=== PATIENT | male | born 1965 | race Caucasian/White ===

== ENCOUNTER 2016-08-21 16:31 | Inpatient (IN) | payer MEDICAID ==
[~2016-08-21] VITALS: Ht 182.9 cm; Wt 103.0 kg
[2016-08-21] MEDS ORDERED: ENOXAPARIN SOD 100 MG/1 ML SYRINGE SC ONE (17:15)
[2016-08-21 17:41] LABS: Basophils # (auto) 0 uL; Basophils % (auto) 0.4 % (0.0-2.0); CONDITION AutoValidated; Eosinophils # (auto) 0.6 uL; Eosinophils % (auto) 6.2 % (0.0-7.0); Hematocrit 45.8 % (41.0-53.0); Hemoglobin 15.8 g/dL (13.5-17.5); Lymphocytes % (auto) 10.6 % (10.0-50.0); Mean Corpuscular Hemoglobin 30.7 pg (28.0-32.0); Mean Corpuscular Hgb Conc. 34.4 g/dL (32.0-36.0); Mean Corpuscular Volume 89.2 fL (80.0-100.0); Mean Platelet Volume 8.1 fL (7.4-10.4); Monocytes # (auto) 0.6 uL; Monocytes % (auto) 5.8 % (0.0-12.0); Neutrophils # (auto) 7.4 uL; Platelet Count (auto) 217 10^3/uL (140-450); Red Cell Distribution Width 13.7 % (11.6-16.0); White Blood Cell 9.7 10^3/uL (4.4-10.8)
[2016-08-21] MEDS ORDERED: HYDROcodone-ACET 5/325MG TAB PO PRN (18:00)
[2016-08-21] MEDS ORDERED: ACETAMINOPHEN 500 MG TAB PO PRN (18:00)
[2016-08-21] MEDS ORDERED: LORazepam 0.5 MG TAB PO PRN (18:00)
[2016-08-21] MEDS ORDERED: NITROGLYCERIN 0.4 MG SL TAB SL PRN (18:00)
[2016-08-21] MEDS ORDERED: PROMETHAZINE HCL 25 MG/ML 1ML IV PRN (18:00)
[2016-08-21] MEDS ORDERED: MORPHINE SULF INJ 2 MG/ML SYRINGE 1ML IV PRN ×2 (18:00)
[2016-08-21] MEDS ORDERED: LACTULOSE 20Gm/30ML SOLN PO PRN (18:00)
[2016-08-21] MEDS ORDERED: TEMAZEPAM 15 MG CAP PO PRN (18:00)
[2016-08-21] MEDS: ENOXAPARIN SOD 100 MG/1 ML SYRINGE SC SCH (18:01)
[2016-08-21 18:04] LABS: Albumin 3.5 g/dL (3.4-5.0); BUN/Creatinine Ratio 13.5; Bilirubin, Total 0.8 mg/dL (0.2-1.0); Calcium 8.6 mg/dL (8.5-10.1); Potassium 3.7 mmol/L (3.5-5.1)
[2016-08-21 18:10] LABS: INR 0.92 (0.9-1.15); Partial Thromboplastin Time 28.6 sec (22.64-33.71)
[2016-08-21] MEDS ORDERED: WARFARIN SODIUM 10 MG TAB PO ONE (19:00)
[2016-08-21 20:15] VITALS: BP 113/81
[2016-08-21 21:43] VITALS: BP 113/81
[2016-08-22 05:06] VITALS: BP 107/65
[2016-08-22] MEDS: ENOXAPARIN SOD 100 MG/1 ML SYRINGE SC SCH ×2 (06:28→17:29)
[2016-08-22 07:09] LABS: Basophils # (auto) 0 uL; Basophils % (auto) 0.5 % (0.0-2.0); CONDITION AutoValidated; Eosinophils # (auto) 0.6 uL; Eosinophils % (auto) 8.5 % (0.0-7.0); Hematocrit 44.3 % (41.0-53.0); Hemoglobin 15.1 g/dL (13.5-17.5); Lymphocytes # (auto) 1.4 uL; Lymphocytes % (auto) 18.8 % (10.0-50.0); Mean Corpuscular Hemoglobin 30.5 pg (28.0-32.0); Mean Corpuscular Hgb Conc. 34.2 g/dL (32.0-36.0); Mean Corpuscular Volume 89.3 fL (80.0-100.0); Mean Platelet Volume 7.7 fL (7.4-10.4); Monocytes # (auto) 0.5 uL; Monocytes % (auto) 6.1 % (0.0-12.0); Neutrophils # (auto) 4.9 uL; Neutrophils % (auto) 66.1 % (37.0-80.0); Platelet Count (auto) 206 10^3/uL (140-450); Red Cell Distribution Width 13.6 % (11.6-16.0); White Blood Cell 7.4 10^3/uL (4.4-10.8)
[2016-08-22 07:19] LABS: INR 0.93 (0.9-1.15); Partial Thromboplastin Time 31.3 sec (22.64-33.71); Prothrombin Time 10.1 sec (9.37-12.3)
[2016-08-22 07:47] LABS: Urine Bilirubin Negative (Negative); Urine Blood Negative /uL (Negative); Urine Color Yellow (Yellow); Urine Glucose Normal (Normal); Urine Ketone Negative (Negative); Urine Mucus FEW (None Seen); Urine RBC 6 /hpf (0 - 3); Urine Triple Phosphate Crystal FEW /hpf (None Seen); Urine Urobilinogen Normal (Negative); Urine pH 7.5 (5.0-8.0)
[2016-08-22 07:49] LABS: Urine Nitrite POSITIVE (Negative)
[2016-08-22 09:36] VITALS: BP 119/83
[2016-08-22] MEDS: PANTOPRAZOLE 40 MG TAB PO SCH (09:54)
[2016-08-22 13:13] VITALS: BP 117/73
[2016-08-22] MEDS ORDERED: WARFARIN SODIUM 10 MG TAB PO ONE (17:00)
[2016-08-22 17:06] VITALS: BP 110/72
[2016-08-22 21:48] VITALS: BP 126/78
[2016-08-23 05:00] VITALS: BP 126/76
[2016-08-23] MEDS: ENOXAPARIN SOD 100 MG/1 ML SYRINGE SC SCH ×2 (05:59→17:22)
[2016-08-23 06:47] LABS: Basophils # (auto) 0 uL; Basophils % (auto) 0.7 % (0.0-2.0); CONDITION AutoValidated; Eosinophils # (auto) 0.6 uL; Eosinophils % (auto) 8.7 % (0.0-7.0); Hematocrit 45.6 % (41.0-53.0); Hemoglobin 15.5 g/dL (13.5-17.5); Lymphocytes # (auto) 1.4 uL; Lymphocytes % (auto) 21.1 % (10.0-50.0); Mean Corpuscular Hemoglobin 30.3 pg (28.0-32.0); Mean Corpuscular Volume 89.1 fL (80.0-100.0); Mean Platelet Volume 7.7 fL (7.4-10.4); Monocytes # (auto) 0.4 uL; Monocytes % (auto) 6.3 % (0.0-12.0); Neutrophils # (auto) 4.1 uL; Neutrophils % (auto) 63.2 % (37.0-80.0); Platelet Count (auto) 222 10^3/uL (140-450); Red Cell Distribution Width 13.7 % (11.6-16.0); White Blood Cell 6.5 10^3/uL (4.4-10.8)
[2016-08-23 06:58] LABS: Partial Thromboplastin Time 36.8 sec (22.64-33.71)
[2016-08-23 07:06] LABS: BUN/Creatinine Ratio 17.4; Calcium 8.2 mg/dL (8.5-10.1); Magnesium 2.2 mg/dL (1.6-2.6); Potassium 3.7 mmol/L (3.5-5.1)
[2016-08-23 07:23] LABS: INR 1.76 (0.9-1.15); Prothrombin Time 19.3 sec (9.37-12.3)
[2016-08-23 09:10] VITALS: BP 119/68
[2016-08-23] MEDS: PANTOPRAZOLE 40 MG TAB PO SCH (09:54)
[2016-08-23 13:44] VITALS: BP 115/80
[2016-08-23] MEDS ORDERED: WARFARIN SODIUM 5 MG TAB PO ONE (17:00)
[2016-08-23 17:02] VITALS: BP 127/76
== END 2016-08-23 18:37 | disposition home or self-care (01) | DRG 197 ==
LOC: ER 16:35 → TELE 16:36 → TELE-EAST 20:15
PROVIDERS: ADMIT Internal Medicine; ATTEND Internal Medicine
DX: I82.411 Acute embolism and thrombosis of right femoral vein (principal); I82.431 Acute embolism and thrombosis of right popliteal vein; E66.01 Morbid (severe) obesity due to excess calories; F17.210 Nicotine dependence, cigarettes, uncomplicated; Z68.30 Body mass index [BMI] 30.0-30.9, adult; I25.10 Atherosclerotic heart disease of native coronary artery without angina pectoris; I25.2 Old myocardial infarction; K21.9 Gastro-esophageal reflux disease without esophagitis; Z80.0 Family history of malignant neoplasm of digestive organs; Z80.3 Family history of malignant neoplasm of breast; Z80.42 Family history of malignant neoplasm of prostate; Z85.46 Personal history of malignant neoplasm of prostate; Z85.51 Personal history of malignant neoplasm of bladder; Z85.528 Personal history of other malignant neoplasm of kidney; M19.90 Unspecified osteoarthritis, unspecified site; Z88.0 Allergy status to penicillin; Z90.5 Acquired absence of kidney; Z71.89 Other specified counseling
CPT/HCPCS: 36415; 80048; 80053; 81001; 81241; 83735; 85025; 85610; 85730; 93971; 94761; 96372

== ENCOUNTER 2016-08-29 09:23 | Emergency (ER) | payer MEDICAID ==
[~2016-08-29] VITALS: Ht 182.9 cm; Wt 95.3 kg
[2016-08-29] MEDS ORDERED: SODIUM CHLORIDE 0.9% 1,000 ML IV ONE (10:29)
[2016-08-29 10:30] LABS: Albumin 3.4 g/dL (3.4-5.0); Bilirubin, Total 0.4 mg/dL (0.2-1.0); Calcium 8.6 mg/dL (8.5-10.1); Potassium 3.4 mmol/L (3.5-5.1); Total Protein 6.6 g/dL (6.4-8.2)
[2016-08-29] MEDS ORDERED: KETOROLAC TROMETH 30 MG/ML 1ML VIAL IV ONE (10:30)
[2016-08-29 10:53] LABS: Basophils # (auto) 0 uL; Basophils % (auto) 0.4 % (0.0-2.0); CONDITION Y; Eosinophils # (auto) 0.4 uL; Eosinophils % (auto) 5.5 % (0.0-7.0); Hematocrit 44.1 % (41.0-53.0); Hemoglobin 15.1 g/dL (13.5-17.5); Lymphocytes % (auto) 14.2 % (10.0-50.0); Mean Corpuscular Hemoglobin 30.5 pg (28.0-32.0); Mean Corpuscular Hgb Conc. 34.1 g/dL (32.0-36.0); Mean Corpuscular Volume 89.2 fL (80.0-100.0); Mean Platelet Volume 7.9 fL (7.4-10.4); Monocytes # (auto) 0.7 uL; Monocytes % (auto) 9.4 % (0.0-12.0); Neutrophils # (auto) 5.2 uL; Neutrophils % (auto) 70.5 % (37.0-80.0); Platelet Count (auto) 242 10^3/uL (140-450); White Blood Cell 7.4 10^3/uL (4.4-10.8)
[2016-08-29 11:15] LABS: INR 2.2 (0.9-1.15); Partial Thromboplastin Time 45.5 sec (22.64-33.71)
[2016-08-29 11:27] LABS: Prothrombin Time 24.2 sec (9.37-12.3)
[2016-08-29 12:34] VITALS: BP 137/87
== END 2016-08-29 14:04 | disposition home or self-care (01) ==
LOC: ER 09:25
DX: I82.401 Acute embolism and thrombosis of unspecified deep veins of right lower extremity (principal); E87.6 Hypokalemia; N18.9 Chronic kidney disease, unspecified; M19.90 Unspecified osteoarthritis, unspecified site; I25.10 Atherosclerotic heart disease of native coronary artery without angina pectoris; K21.9 Gastro-esophageal reflux disease without esophagitis; F17.210 Nicotine dependence, cigarettes, uncomplicated; I25.2 Old myocardial infarction; Z90.49 Acquired absence of other specified parts of digestive tract; Z88.0 Allergy status to penicillin; Z85.528 Personal history of other malignant neoplasm of kidney
CPT/HCPCS: 36415; 80053; 83735; 84443; 85025; 85379; 85610; 85730; 93005; 93971; 96361; 96374; 99285; J1885; J7030

== ENCOUNTER 2017-08-20 16:20 | Emergency (ER) | payer MEDICAID ==
[~2017-08-20] VITALS: Ht 182.9 cm; Wt 99.8 kg
[2017-08-20 16:36] VITALS: BP 119/80
[2017-08-20] MEDS ORDERED: HYDROcodone-ACET 5/325MG TAB PO ONE (17:30)
== END 2017-08-20 17:56 | disposition home or self-care (01) ==
LOC: ER 16:27
DX: S82.52XA Displaced fracture of medial malleolus of left tibia, initial encounter for closed fracture (principal); S93.402A Sprain of unspecified ligament of left ankle, initial encounter; Z88.0 Allergy status to penicillin; W22.8XXA Striking against or struck by other objects, initial encounter; Y93.89 Activity, other specified; Y92.89 Other specified places as the place of occurrence of the external cause; Y99.8 Other external cause status
CPT/HCPCS: 29515; 73610

== ENCOUNTER 2018-11-25 13:17 | Inpatient (IN) | payer MEDICAID ==
[~2018-11-25] VITALS: Ht 182.9 cm; Wt 113.4 kg
[2018-11-25 13:55] LABS: Basophils # (auto) 0.1 uL; Basophils % (auto) 0.8 % (0.0-2.0); Eosinophils # (auto) 0.5 uL; Eosinophils % (auto) 6.9 % (0.0-7.0); Hematocrit 49.4 % (41.0-53.0); Hemoglobin 16.9 g/dL (13.5-17.5); Lymphocytes # (auto) 1.2 uL; Lymphocytes % (auto) 16.1 % (10.0-50.0); Mean Corpuscular Hemoglobin 30.8 pg (28.0-32.0); Mean Corpuscular Hgb Conc. 34.1 g/dL (32.0-36.0); Mean Corpuscular Volume 90.3 fL (80.0-100.0); Monocytes # (auto) 0.4 uL; Neutrophils # (auto) 5.3 uL; Neutrophils % (auto) 70.2 % (37.0-80.0); Nucleated Red Blood Cells % 0.1 %; Platelet Count (auto) 186 10^3/uL (140-450); Red Blood Cells 5.48 10^6/uL (4.5-5.90); Red Cell Distribution Width 14.4 % (11.8-14.3); White Blood Cell 7.5 10^3/uL (4.4-10.8)
[2018-11-25 14:16] LABS: INR < 0.93 (0.9-1.15); Partial Thromboplastin Time 29.8 sec (23.64-32.05)
[2018-11-25 14:17] LABS: Albumin 3.5 g/dL (3.4-5.0); Anion Gap 4 (5-15); Blood Urea Nitrogen 10 mg/dL (7-18); Calcium 8.3 mg/dL (8.5-10.1); Carbon Dioxide 28 mmol/L (21-32); Chloride 106 mmol/L (98-107); Glucose 106 mg/dL (74-106); Sodium 138 mmol/L (136-145)
[2018-11-25 14:20] LABS: Alanine Aminotransferase 39 U/L (16-61); Aspartate Aminotransferase 18 U/L (15-37); BUN/Creatinine Ratio 8.3; GFR African American 80 mL/min; GFR Non-African American 66 mL/min
[2018-11-25 14:25] LABS: Alkaline Phosphatase 85 U/L (45-117); Bilirubin, Total 0.6 mg/dL (0.2-1.0); Total Protein 7.1 g/dL (6.4-8.2)
[2018-11-25] MEDS ORDERED: FUROSEMIDE 40 MG/4 ML VIAL IV ONE (14:45)
[2018-11-25] MEDS ORDERED: MORPHINE SULFATE 4 MG/ML SYR/VIAL ONE (15:13)
[2018-11-25] MEDS ORDERED: ONDANSETRON HCL 4 MG/2 ML VIAL ONE (15:13)
[2018-11-25] MEDS ORDERED: ONDANSETRON HCL 4 MG/2 ML VIAL IV ONE (15:30)
[2018-11-25] MEDS ORDERED: MORPHINE SULFATE 4 MG/ML SYR/VIAL IV ONE (15:30)
[2018-11-25] MEDS ORDERED: ENOXAPARIN SOD 120 MG/0.8 ML SYRINGE SC ONE ×2 (16:30→17:00)
[2018-11-25] MEDS ORDERED: PROMETHAZINE HCL 25 MG/ML 1ML IV PRN (16:45)
[2018-11-25] MEDS ORDERED: TEMAZEPAM 15 MG CAP PO PRN (16:45)
[2018-11-25] MEDS ORDERED: MORPHINE SULF INJ 2 MG/ML SYRINGE 1ML IV PRN (16:45)
[2018-11-25] MEDS ORDERED: NITROGLYCERIN 0.4 MG SL TAB SL PRN (16:45)
[2018-11-25] MEDS ORDERED: traMADol HCL 50 MG TAB PO PRN (16:45)
[2018-11-25] MEDS ORDERED: LACTULOSE 20Gm/30ML SOLN PO PRN (16:45)
[2018-11-25] MEDS ORDERED: ACETAMINOPHEN 500 MG TAB PO PRN (16:45)
--- NOTE | 2018-11-25 18:26 | NUR ---
Telemetry admit from ER JULIO CÉSAR HUNG admitted to Telemetry unit after SBAR received. Patient oriented to Cassie justice RN, unit, room, bed, and unit policies regarding patient care and visiting hours. Patient now on continuous telemetry monitoring, tele box # [[id number]] and telemetry reading on arrival to unit is [SINUSTACHYCARDIA AT [id number]]. Patient placed on bedside oxygen, weighed by bedscale and encouraged to call if they need something. All questions and concerns addressed, patient verbalized understanding.
[2018-11-25] MEDS ORDERED: ALBUTEROL SULF 2.5 MG/0.5ML(0.5%) NEB SOLN NEB PRN ×2 (18:30→21:00)
--- NOTE | 2018-11-25 19:00 | NUR ---
OUTSIDE FOOD ENTERED ROOM FOR LAST ROUND AND FOUND PATIENT EATING FOOD THAT WAS BROUGHT IN FROM FAMILY. PATIENT IS CURRENTLY EATING A HAMBURGER, FRIES AND NUMEROUS CHOCOLATE BARS. EDUCATED PATIENT ON IMPORTANCE OF COMPLYING WITH MD'S CURRENT DIET ORDER. PATIENT VERBALIZED UNDERSTANDING AND STATES "YEAH I KNOW. BUT I AM FINE. THIS IS WHAT I AM GOING TO EAT". PATIENT CONTINUES TO EAT.
[2018-11-25 19:19] VITALS: BP 121/74
[2018-11-25] MEDS ORDERED: APIX5TAB PO (19:29)
--- NOTE | 2018-11-25 20:08 | NUR ---
Pt is willing to use Nicotine patch tonight and states that he does not plan on going back out to smoke. Pt also with wheezes in all lobes bilat and Hospitalist paged for nicotine patch and Simran mason.
--- NOTE | 2018-11-25 20:43 | NUR ---
Hospitalist, Louie Mercedes [employer] E[employer] CONSULTANT returned page and new orders received at this time.
[2018-11-25 21:00] VITALS: BP 121/74
--- NOTE | 2018-11-25 21:14 | NUR ---
Respiratory note: AT BEDSIDE FOR PRN MED NEB TX.
[2018-11-25 21:40] VITALS: BP 121/74
[2018-11-25 22:00] VITALS: BP 120/81
--- NOTE | 2018-11-25 22:00 | NUR ---
BOAT FINISHER came to report pt c/o chest pain and pt found clutching his chest and c/o chest pain 12/15. see vs record for vs, EKG done= (ST 102 otherwise normal ECG.) Morphine given for chest pain.
[2018-11-25 22:10] VITALS: BP 127/76
--- NOTE | 2018-11-25 22:10 | NUR ---
Pt now rates chest pain 08/15.
--- NOTE | 2018-11-25 22:18 | NUR ---
Pt is resting with eyes closed and resp rate is even and unlabored. No s/s of any distress noted at this time. Pt is also snoring.
[2018-11-25] MEDS: CLINDAMYCIN 600MG IV 50 ML IV SCH (22:33)
[2018-11-25 23:02] LABS: Urine Bacteria NONE SEEN /hpf (None Seen); Urine Blood Negative /uL (Negative); Urine Mucus FEW (None Seen); Urine Specific Gravity 1.015 (1.001-1.035); Urine WBC 30 /hpf (0 - 3)
[2018-11-25 23:14] LABS: Alcohol, Urine < 3.0 mg/dL (0-5); Barbiturate Scree,Urine NEGATIVE (NEGATIVE); Benzodiazephine Screen, Urine NEGATIVE (NEGATIVE); Cannabinoid Screen, Urine NEGATIVE (NEGATIVE); Cocaine Screen, Urine POSITIVE (NEGATIVE)
[2018-11-25 23:18] LABS: Opiate Scree,Urine POSITIVE (NEGATIVE); Phencyclidine Screen, Urine NEGATIVE (NEGATIVE)
[2018-11-26] VITALS (9 sets, daily range): BP systolic 94–127; BP diastolic 47–85
[2018-11-26] MEDS: ALBUTEROL SULF 2.5 MG/0.5ML(0.5%) NEB SOLN NEB SCH ×4 (00:47→18:17)
[2018-11-26] MEDS: IPRATROPIUM BROM 0.5 MG/2.5ML INH SOL NEB SCH ×4 (00:47→18:17)
--- NOTE | 2018-11-26 01:00 | NUR ---
UDS- positive for Opiates, Cocaine, and Amphetamines.
[2018-11-26 01:27] LABS: Amphetamine Screen, Urine POSITIVE (NEGATIVE)
--- NOTE | 2018-11-26 02:50 | NUR ---
Pt reports no relief from the Nitro. B/P is 95/47 at this time.
--- NOTE | 2018-11-26 03:01 | NUR ---
Pt states that he awoke with chest pain 12/15 . Pt skin is warm and dry and pink. see vs record for vs. resp rate is even and unlabored. Nitro SL given at this time. Addendum: 11/26/18 at 0639 by ANA ECHAVARRIA RN Correction: The time of this event was 0245 on 11/26/18.
--- NOTE | 2018-11-26 03:17 | NUR ---
Pt c/o nausea and medicated with Phenergan 12.5mg IVP per orders.
--- NOTE | 2018-11-26 03:40 | NUR ---
Pt resting with eyes closed and resp rate is even and unlabored. Pt is also snoring. No s/s of any distress noted at this time. Bed is low, wheels are locked, and call light is with in reach.
[2018-11-26] MEDS ORDERED: ENOXAPARIN SOD 120 MG/0.8 ML SYRINGE SC SCH (06:00)
[2018-11-26] MEDS: CLINDAMYCIN 600MG IV 50 ML IV SCH ×2 (06:22→14:02)
--- NOTE | 2018-11-26 07:10 | NUR ---
Respiratory note: SCHEDULED MEDNEB TX NOT GIVEN, PT REFUSING AT THIS TIME. PT SLEEPING COMFORTABLY IN BED, NO S/S OF RESPIRATORY DISTRESS. WILL RETURN FOR NEXT SCHEDULED TX. WROTE RT NAME AND PAGER NUMBER ON WHITEBOARD.
[2018-11-26] MEDS ORDERED: NICOTINE 14 MG/24HR TOPICAL PATCH TD SCH (10:00)
[2018-11-26] MEDS ORDERED: PANTOPRAZOLE 40 MG TAB PO SCH (10:00)
[2018-11-26] MEDS ORDERED: ASPirin 81 mg TAB PO SCH (10:00)
[2018-11-26] MEDS ORDERED: LEVOFLOXACIN 500MG 100 ML IV SCH (10:00)
[2018-11-26] MEDS ORDERED: SODIUM CHLORIDE 0.9% 1,000 ML IV ONE (10:45)
--- NOTE | 2018-11-26 11:00 | NUR ---
MD to MD MD Yocasta Alvarado speaking to cardio MD Teran. Per cardiology, patient is cleared for DC from his standpoint.
--- NOTE | 2018-11-26 11:02 | NUR ---
at bedside Dr. Yocasta Alvarado at bedside discussing POC with patient. All questions and concerns addressed.
[2018-11-26] MEDS ORDERED: IOHEXOL 350 MG/ML 100ML IJ ONE (12:14)
--- NOTE | 2018-11-26 12:38 | NUR ---
PT OFF UNIT OFF UNIT FOR CT ANGIO
--- NOTE | 2018-11-26 12:56 | NUR ---
BACK ON UNIT PATIENT BACK ON UNIT FROM PROCEDURE
[2018-11-26] MEDS ORDERED: APIX5TAB PO (13:00)
--- NOTE | 2018-11-26 14:09 | NUR ---
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
--- NOTE | 2018-11-26 14:11 | NUR ---
DISCHARGE MEDICATION CALLED PT'S PREFERRED PHARMACY [facility] TO CONFIRM THAT D/C MED WAS ELECTRONICALLY SENT. PER [facility] INSULATION CUTTER AND [facility], PHARMACY HAS RECEIVED D/C PRESCRIPTION AND IS AVAILABLE FOR WELD TECHNICIAN ONCE PATIENT HAS BEEN DISCHARGED FROM HOSPITAL.
--- NOTE | 2018-11-26 14:25 | NUR ---
SOCIAL SERVICE RETURN CALL SPOKE TO S.S. PERSONAL STEPHAN. PER STEPHAN, PRIMARY RN TO CONFIRM IF PATIENT ALREADY HAS HOME HEALTH SET UP. PER STEPHAN, SOCIAL SERIVCES CONSULT WILL BE ADDRESSED ON WEDNESDAY AND HOME HEALTH WILL BE SET UP. COPY OF USER INTERFACE ARTIST REQUEST WITH CURRENT INFO PLACED ON S.S. OFFICE. 1430- PER PATIENT HE DOES NOT CURRENTLY HAVE HOME HEALTH SERVICES AT HOME. PATIENT ALSO DOES NOT HAVE A SPECIFIC PRIMARY MD BUT DOES FOLLOW UP WITH [facility].
--- NOTE | 2018-11-26 15:19 | NUR ---
Yocasta Alvarado return call Updated MD on CT angio results. Per MD ok to precede with discharge for today.
--- NOTE | 2018-11-26 17:25 | NUR ---
TELE BOX #60 REMOVED AND SENT TO ICU
[2018-11-26] MEDS ORDERED: ELIQUIS PO SCH (18:00)
[2018-11-26] MEDS ORDERED: APIXABAN 5 MG TAB PO SCH (18:00)
== END 2018-11-26 18:30 | disposition home health service (06) | DRG 197 ==
LOC: ER 13:17 → TELE 13:18 → TELE-WESTW 18:29
PROVIDERS: ADMIT Internal Medicine; ATTEND Internal Medicine
DX: I82.4Z3 Acute embolism and thrombosis of unspecified deep veins of distal lower extremity, bilateral (principal); I50.43 Acute on chronic combined systolic (congestive) and diastolic (congestive) heart failure; Z93.6 Other artificial openings of urinary tract status; R07.89 Other chest pain; F15.10 Other stimulant abuse, uncomplicated; F17.210 Nicotine dependence, cigarettes, uncomplicated; I25.10 Atherosclerotic heart disease of native coronary artery without angina pectoris; J45.909 Unspecified asthma, uncomplicated; M19.90 Unspecified osteoarthritis, unspecified site; K21.9 Gastro-esophageal reflux disease without esophagitis; Z80.3 Family history of malignant neoplasm of breast; Z80.42 Family history of malignant neoplasm of prostate; I25.2 Old myocardial infarction; Z82.49 Family history of ischemic heart disease and other diseases of the circulatory system; Z83.3 Family history of diabetes mellitus; Z85.46 Personal history of malignant neoplasm of prostate; Z85.528 Personal history of other malignant neoplasm of kidney; Z86.718 Personal history of other venous thrombosis and embolism; Z90.5 Acquired absence of kidney; Z91.19 Patient's noncompliance with other medical treatment and regimen; Z85.51 Personal history of malignant neoplasm of bladder; Z88.0 Allergy status to penicillin
CPT/HCPCS: 36415; 71046; 71275; 80053; 80307; 81001; 82550; 84443; 84484; 85025; 85610; 85730; 93005; 93306; 93970; 94640; G0378; J1956; J2405; J3490

== ENCOUNTER 2021-12-12 04:37 | Inpatient (IN) | payer MEDICAID ==
[~2021-12-12] VITALS: Ht 188 cm; Wt 113.5 kg
[~2021-12-12 04:37] MED LIST: APIX5TAB PO
[2021-12-12 06:18] LABS: Basophils # (auto) 0.1 10 ^3/uL (0-0.2); Basophils % (auto) 0.8 % (0.0-2.0); Eosinophils # (auto) 0.3 10 ^3/uL (0-0.8); Eosinophils % (auto) 2.5 % (0.0-7.0); Hematocrit 48.3 % (41.0-53.0); Hemoglobin 16.6 g/dL (13.5-17.5); Lymphocytes # (auto) 0.9 10 ^3/uL (0.4-5.4); Mean Corpuscular Hemoglobin 30.4 pg (28.0-32.0); Mean Corpuscular Hgb Conc. 34.3 g/dL (32.0-36.0); Mean Corpuscular Volume 88.7 fL (80.0-100.0); Monocytes # (auto) 0.7 10 ^3/uL (0-1.3); Monocytes % (auto) 6.8 % (0.0-12.0); Neutrophils # (auto) 8.3 10 ^3/uL (1.6-8.6); Neutrophils % (auto) 80.9 % (37.0-80.0); Nucleated Red Blood Cells % 0.1 %; Red Blood Cells 5.45 10^6/uL (4.5-5.90); Red Cell Distribution Width 14.3 % (11.8-14.3); White Blood Cell 10.2 10^3/uL (4.4-10.8)
[2021-12-12 06:32] LABS: Albumin 3.6 g/dL (3.4-5.0); Calcium 8.8 mg/dL (8.5-10.1); Potassium 4.4 mmol/L (3.5-5.1)
[2021-12-12 06:37] LABS: BUN/Creatinine Ratio 8.2; Bilirubin, Total 0.6 mg/dL (0.2-1.0); Total Protein 7.5 g/dL (6.4-8.2)
[2021-12-12] MEDS ORDERED: IOHEXOL 300 MG/ML 100ML BOTTLE IJ ONE (09:23)
[2021-12-12] MEDS ORDERED: ALBUTEROL SULF 2.5 MG/0.5ML(0.5%) NEB SOLN NEB ONE (09:30)
[2021-12-12] MEDS ORDERED: CLINDAMYCIN 600MG IV 50 ML IV ONE (09:30)
[2021-12-12] MEDS ORDERED: IPRATROPIUM BROM 0.5 MG/2.5ML INH SOL NEB ONE (09:30)
[2021-12-12] MEDS ORDERED: DexAMETHasone SOD PHOS 10MG/1ML VIAL INJ IV ONE (09:30)
[2021-12-12] MEDS: MAGNESIUM SULFATE 1GM/100ML 100 ML IV SCH ×2 (09:42→13:15)
[2021-12-12] MEDS ORDERED: ENOXAPARIN SOD 100 MG/1 ML SYRINGE SC ONE (16:30)
[2021-12-12] MEDS ORDERED: MORPHINE SULFATE INJ 2 MG/ml SYRG IV PRN (19:00)
[2021-12-12] MEDS ORDERED: IPRATROPIUM BROM 0.5 MG/2.5ML INH SOL NEB PRN (19:00)
[2021-12-12] MEDS ORDERED: DOCUSATE SOD 100 MG CAP PO PRN (19:00)
[2021-12-12] MEDS ORDERED: ACETAMINOPHEN 325 MG TAB PO PRN (19:00)
[2021-12-12] MEDS ORDERED: ONDANSETRON HCL 4 MG/2 ML VIAL IV PRN (19:00)
[2021-12-12] MEDS ORDERED: ALBUTEROL SULF 2.5 MG/0.5ML(0.5%) NEB SOLN NEB PRN (19:00)
[2021-12-12] MEDS: SODIUM CHLORIDE 0.9% 1,000 ML IV SCH (20:26)
[2021-12-12 21:18] VITALS: BP 120/72
[2021-12-12] MEDS: DexAMETHasone SOD PHOS 10MG/1ML VIAL INJ IV SCH (22:00)
[2021-12-12] MEDS: CLINDAMYCIN 600MG IV 50 ML IV SCH (22:00)
[2021-12-12 22:59] VITALS: BP 119/67
[2021-12-13 05:00] VITALS: BP 104/48
[2021-12-13] MEDS: DexAMETHasone SOD PHOS 10MG/1ML VIAL INJ IV SCH (06:00)
[2021-12-13] MEDS: ENOXAPARIN SOD 120 MG/0.8 ML SYRINGE SC SCH ×2 (06:00→18:00)
[2021-12-13] MEDS: CLINDAMYCIN 600MG IV 50 ML IV SCH ×2 (06:00→14:40)
[2021-12-13 06:45] LABS: Basophils # (auto) 0.1 10 ^3/uL (0-0.2); Basophils % (auto) 0.5 % (0.0-2.0); Eosinophils # (auto) 0 10 ^3/uL (0-0.8); Hematocrit 47.1 % (41.0-53.0); Hemoglobin 16.1 g/dL (13.5-17.5); Lymphocytes # (auto) 0.6 10 ^3/uL (0.4-5.4); Lymphocytes % (auto) 5.2 % (10.0-50.0); Mean Corpuscular Hemoglobin 30.3 pg (28.0-32.0); Mean Corpuscular Hgb Conc. 34.1 g/dL (32.0-36.0); Mean Corpuscular Volume 88.8 fL (80.0-100.0); Monocytes # (auto) 0.1 10 ^3/uL (0-1.3); Monocytes % (auto) 1.2 % (0.0-12.0); Neutrophils # (auto) 11.5 10 ^3/uL (1.6-8.6); Neutrophils % (auto) 93.1 % (37.0-80.0); Nucleated Red Blood Cells % 0.1 %; Red Blood Cells 5.31 10^6/uL (4.5-5.90); White Blood Cell 12.4 10^3/uL (4.4-10.8)
[2021-12-13 07:03] LABS: Albumin 3.4 g/dL (3.4-5.0); Calcium 8.7 mg/dL (8.5-10.1); Potassium 4.9 mmol/L (3.5-5.1)
[2021-12-13 07:09] LABS: BUN/Creatinine Ratio 17.7; Bilirubin, Total 0.5 mg/dL (0.2-1.0)
[2021-12-13 09:43] VITALS: BP 103/62
[2021-12-13] MEDS ORDERED: VANCOMYCIN PER PHARMACY 0 MG IV SCH (11:30)
[2021-12-13] MEDS ORDERED: VANCOMYCIN 1GM/250ML 250 ML IV ONE (11:45)
[2021-12-13] MEDS: PANTOPRAZOLE 40 MG TAB PO SCH (11:48)
[2021-12-13] MEDS ORDERED: VANCOMYCIN 1GM/250ML 250 ML IV SCH (12:00)
[2021-12-13] MEDS: SODIUM CHLORIDE 0.9% 1,000 ML IV SCH (12:02)
[2021-12-13 12:37] VITALS: BP 120/73
[2021-12-13 17:26] VITALS: BP 126/78
[2021-12-13] MEDS ORDERED: cefTRIAXone 1GM/50ML D5W 50 ML IV SCH (18:00)
[2021-12-13 23:42] VITALS: BP 140/75
[2021-12-14] MEDS: SODIUM CHLORIDE 0.9% 1,000 ML IV SCH (04:20)
[2021-12-14] MEDS: ENOXAPARIN SOD 120 MG/0.8 ML SYRINGE SC SCH (05:54)
[2021-12-14 06:16] LABS: Basophils # (auto) 0 10 ^3/uL (0-0.2); Basophils % (auto) 0.3 % (0.0-2.0); Eosinophils # (auto) 0 10 ^3/uL (0-0.8); Hematocrit 46.1 % (41.0-53.0); Hemoglobin 15.8 g/dL (13.5-17.5); Lymphocytes % (auto) 7.4 % (10.0-50.0); Mean Corpuscular Hemoglobin 30.8 pg (28.0-32.0); Mean Corpuscular Hgb Conc. 34.2 g/dL (32.0-36.0); Monocytes # (auto) 0.7 10 ^3/uL (0-1.3); Monocytes % (auto) 5.2 % (0.0-12.0); Neutrophils % (auto) 87.1 % (37.0-80.0); Nucleated Red Blood Cells % 0.1 %; Red Blood Cells 5.12 10^6/uL (4.5-5.90); White Blood Cell 13.8 10^3/uL (4.4-10.8)
[2021-12-14 06:26] VITALS: BP 107/71
[2021-12-14 06:29] LABS: INR 0.96 (0.9-1.15); Partial Thromboplastin Time 32.4 sec (24.6-33.4)
[2021-12-14 06:34] LABS: Calcium 8.9 mg/dL (8.5-10.1); Potassium 4.5 mmol/L (3.5-5.1)
[2021-12-14 09:07] VITALS: BP 137/84
[2021-12-14] MEDS: PANTOPRAZOLE 40 MG TAB PO SCH (09:32)
[2021-12-14 13:00] VITALS: BP 137/91
[2021-12-14] MEDS ORDERED: AMOX500T86 PO (14:59)
[2021-12-14 16:57] VITALS: BP 118/77
[2021-12-14 17:33] LABS: Urine Bacteria FEW /hpf (None Seen); Urine Blood Negative /uL (Negative); Urine Specific Gravity 1.015 (1.001-1.035); Urine WBC 11 /hpf (0 - 3)
[2021-12-14 17:38] LABS: Alcohol, Urine < 3.0 mg/dL (0-10); Amphetamine Screen, Urine POSITIVE (NEGATIVE); Barbiturate Scree,Urine NEGATIVE (NEGATIVE); Benzodiazephine Screen, Urine NEGATIVE (NEGATIVE); Cannabinoid Screen, Urine NEGATIVE (NEGATIVE); Cocaine Screen, Urine NEGATIVE (NEGATIVE); Opiate Scree,Urine NEGATIVE (NEGATIVE); Phencyclidine Screen, Urine NEGATIVE (NEGATIVE)
== END 2021-12-14 16:58 | disposition home or self-care (01) | DRG 383 ==
LOC: ER 04:37 → OVERFLOW 18:56 → WEST WING 21:55
PROVIDERS: ADMIT Nurse Practitioner Family; ATTEND Nurse Practitioner Family
DX: L03.211 Cellulitis of face (principal); I82.502 Chronic embolism and thrombosis of unspecified deep veins of left lower extremity; F17.210 Nicotine dependence, cigarettes, uncomplicated; I25.10 Atherosclerotic heart disease of native coronary artery without angina pectoris; R73.03 Prediabetes; J45.909 Unspecified asthma, uncomplicated; K21.9 Gastro-esophageal reflux disease without esophagitis; K04.7 Periapical abscess without sinus; M19.90 Unspecified osteoarthritis, unspecified site; Z20.822 Contact with and (suspected) exposure to COVID-19; Z83.3 Family history of diabetes mellitus; Z85.46 Personal history of malignant neoplasm of prostate; Z85.51 Personal history of malignant neoplasm of bladder; Z85.528 Personal history of other malignant neoplasm of kidney; Z90.5 Acquired absence of kidney; Z91.14 Patient's other noncompliance with medication regimen; Z93.2 Ileostomy status; Z88.0 Allergy status to penicillin
CPT/HCPCS: 36415; 70450; 70487; 70547; 71045; 80048; 80053; 80307; 81001; 83036; 83880; 85025; 85610; 85730; 87040; 87081; 93005; 93970; 94640; 96365; 96372; 96375; G0378; J1100; J2405; J3490

== ENCOUNTER 2022-07-05 15:12 | Emergency (ER) | payer MEDICAID ==
[~2022-07-05] VITALS: Ht 182.9 cm; Wt 121.3 kg
[~2022-07-05 15:12] MED LIST changes: +AMOX500T86 PO
[2022-07-05 15:21] VITALS: BP 147/95
[2022-07-05] MEDS ORDERED: FURO40TA4 PO (20:47)
[2022-07-05] MEDS ORDERED: RIV15T PO (20:47)
== END 2022-07-05 16:43 | disposition left against medical advice (07) ==
LOC: ER 15:12
DX: I82.402 Acute embolism and thrombosis of unspecified deep veins of left lower extremity (principal); J45.909 Unspecified asthma, uncomplicated; K21.9 Gastro-esophageal reflux disease without esophagitis; F17.210 Nicotine dependence, cigarettes, uncomplicated; Z88.0 Allergy status to penicillin; Z88.1 Allergy status to other antibiotic agents

== ENCOUNTER 2022-07-05 17:29 | Inpatient (IN) | payer MEDICAID ==
[~2022-07-05] VITALS: Ht 182.9 cm; Wt 121.5 kg
[2022-07-05 20:28] VITALS: BP 124/86
[2022-07-05] MEDS ORDERED: RIV15T PO (20:47)
[2022-07-05] MEDS ORDERED: FURO40TA4 PO (20:47)
[2022-07-05] MEDS ORDERED: HEPARIN DRIP/D5W 100UNITS/ML 250 ML IV SCH (21:15)
[2022-07-05 22:00] VITALS: BP 124/86
[2022-07-05 22:11] LABS: Basophils # (auto) 0.1 10 ^3/uL (0-0.2); Basophils % (auto) 0.8 % (0.0-2.0); Eosinophils # (auto) 0.4 10 ^3/uL (0-0.8); Eosinophils % (auto) 4.2 % (0.0-7.0); Hematocrit 44.9 % (41.0-53.0); Hemoglobin 15.4 g/dL (13.5-17.5); Lymphocytes # (auto) 1.4 10 ^3/uL (0.4-5.4); Lymphocytes % (auto) 15.3 % (10.0-50.0); Mean Corpuscular Hemoglobin 30.3 pg (28.0-32.0); Mean Corpuscular Hgb Conc. 34.2 g/dL (32.0-36.0); Mean Corpuscular Volume 88.6 fL (80.0-100.0); Monocytes # (auto) 0.5 10 ^3/uL (0-1.3); Monocytes % (auto) 5.5 % (0.0-12.0); Neutrophils # (auto) 6.9 10 ^3/uL (1.6-8.6); Neutrophils % (auto) 74.2 % (37.0-80.0); Nucleated Red Blood Cells % 0.1 %; Red Blood Cells 5.07 10^6/uL (4.5-5.90); Red Cell Distribution Width 14.4 % (11.8-14.3); White Blood Cell 9.3 10^3/uL (4.4-10.8)
[2022-07-05 22:33] LABS: INR 0.96 (0.9-1.15); Partial Thromboplastin Time 32.2 sec (24.6-33.4)
[2022-07-05] MEDS ORDERED: HEPARIN SODIUM (PORCINE) 5000 UNITS/ML 1ML VIAL IV NR (23:45)
[2022-07-05 23:49] LABS: Anion Gap 7 (5-15); BUN/Creatinine Ratio 10.2 (10.0-20.0); Blood Urea Nitrogen 12 mg/dL (7-18); Calcium 8.6 mg/dL (8.5-10.1); Carbon Dioxide 22 mmol/L (21-32); Chloride 107 mmol/L (98-107); GFR African American 82 mL/min; GFR Non-African American 67 mL/min; Glucose 233 mg/dL (74-106); Potassium 3.7 mmol/L (3.5-5.1); Sodium 136 mmol/L (136-145)
[2022-07-06] VITALS (9 sets, daily range): BP systolic 111–147; BP diastolic 56–93
[2022-07-06] MEDS: HYDROcodone-ACET 5/325MG TAB PO PRN ×2 (00:02→22:57)
[2022-07-06 01:34] LABS: Urine Bacteria FEW /hpf (None Seen); Urine Blood TRACE /uL (Negative); Urine Hyaline Cast FEW /lpf (0 - 2); Urine Mucus FEW (None Seen); Urine WBC 14 /hpf (0 - 3)
[2022-07-06 01:53] LABS: Amphetamine Screen, Urine POSITIVE (NEGATIVE); Cannabinoid Screen, Urine NEGATIVE (NEGATIVE)
[2022-07-06 02:01] LABS: Barbiturate Scree,Urine NEGATIVE (NEGATIVE); Benzodiazephine Screen, Urine NEGATIVE (NEGATIVE); Cocaine Screen, Urine NEGATIVE (NEGATIVE); Opiate Scree,Urine NEGATIVE (NEGATIVE); Phencyclidine Screen, Urine NEGATIVE (NEGATIVE)
[2022-07-06 06:10] LABS: Basophils # (auto) 0 10 ^3/uL (0-0.2); Basophils % (auto) 0.5 % (0.0-2.0); Eosinophils # (auto) 0.4 10 ^3/uL (0-0.8); Eosinophils % (auto) 5.4 % (0.0-7.0); Hematocrit 43.7 % (41.0-53.0); Hemoglobin 15.2 g/dL (13.5-17.5); Lymphocytes # (auto) 1.7 10 ^3/uL (0.4-5.4); Lymphocytes % (auto) 22.3 % (10.0-50.0); Mean Corpuscular Hemoglobin 30.9 pg (28.0-32.0); Mean Corpuscular Hgb Conc. 34.7 g/dL (32.0-36.0); Mean Corpuscular Volume 89.2 fL (80.0-100.0); Monocytes # (auto) 0.4 10 ^3/uL (0-1.3); Monocytes % (auto) 5.9 % (0.0-12.0); Neutrophils % (auto) 65.9 % (37.0-80.0); Nucleated Red Blood Cells % 0.2 %; Red Cell Distribution Width 14.9 % (11.8-14.3); White Blood Cell 7.6 10^3/uL (4.4-10.8)
[2022-07-06 06:23] LABS: INR 0.97 (0.9-1.15); Partial Thromboplastin Time 46.9 sec (24.6-33.4)
[2022-07-06 06:27] LABS: BUN/Creatinine Ratio 13.2 (10.0-20.0); Calcium 8.6 mg/dL (8.5-10.1); Potassium 3.7 mmol/L (3.5-5.1)
[2022-07-06] MEDS ORDERED: HEPARIN DRIP/D5W 100UNITS/ML 250 ML IV SCH ×3 (06:45→22:45)
[2022-07-06] MEDS ORDERED: IODIXANOL 320MG/ML 100ML BTL IV ONE (12:13)
[2022-07-06] MEDS ORDERED: LIDOCAINE 2%HCL (LOCAL ANESTH.) INJ 20ML MDV ONE (12:13)
[2022-07-06] MEDS ORDERED: fentaNYL CITRATE 100 MCG/2 ML VL ONE (12:14)
[2022-07-06] MEDS ORDERED: ANGIOMAX 250 MG VIAL IV ONE (12:14)
[2022-07-06] MEDS ORDERED: SODIUM CHL 0.9% 0 ML ONE (12:15)
[2022-07-06] MEDS ORDERED: MIDAZOLAM HCL 2MG/2ML 2ml VIAL (1mg/ml) ONE (12:15)
[2022-07-06] MEDS ORDERED: HEPARIN SODIUM (PORCINE) 5000 UNITS/ML 1ML VIAL ONE (12:17)
[2022-07-06] MEDS ORDERED: DEXTROSE (50%) 50ML SYRG IV PRN (12:45)
[2022-07-06] MEDS ORDERED: cefTRIAXone 1GM/50ML D5W 50 ML IV ONE (12:45)
[2022-07-06] MEDS ORDERED: HEPARIN DRIP/D5W 100UNITS/ML 250 ML IV ONE (13:11)
[2022-07-06 14:49] LABS: INR 0.96 (0.9-1.15); Partial Thromboplastin Time 33.7 sec (24.6-33.4)
[2022-07-06] MEDS ORDERED: HEPARIN SODIUM (PORCINE) 5000 UNITS/ML 1ML VIAL IV ONE (15:15)
[2022-07-06] MEDS: InsuLIN REG 1unit/0.01ml Soln (100units/ml) SC SCH ×2 (18:02→23:12)
[2022-07-06] MEDS: ACCU-CHEK COMFORT CURVE STRIP VI SCH ×2 (18:02→22:58)
[2022-07-06 22:31] LABS: INR 0.97 (0.9-1.15)
[2022-07-06 22:34] LABS: Partial Thromboplastin Time 77.3 sec (24.6-33.4)
[2022-07-07] MEDS: ACCU-CHEK COMFORT CURVE STRIP VI SCH ×2 (05:38→12:00)
[2022-07-07] MEDS: InsuLIN REG 1unit/0.01ml Soln (100units/ml) SC SCH ×2 (05:41→12:00)
[2022-07-07 06:30] LABS: Basophils # (auto) 0 10 ^3/uL (0-0.2); Basophils % (auto) 0.6 % (0.0-2.0); Eosinophils # (auto) 0.3 10 ^3/uL (0-0.8); Eosinophils % (auto) 4.7 % (0.0-7.0); Hematocrit 44.1 % (41.0-53.0); Lymphocytes # (auto) 1.4 10 ^3/uL (0.4-5.4); Lymphocytes % (auto) 19.4 % (10.0-50.0); Mean Corpuscular Hemoglobin 30.2 pg (28.0-32.0); Mean Corpuscular Hgb Conc. 33.9 g/dL (32.0-36.0); Mean Corpuscular Volume 89.2 fL (80.0-100.0); Monocytes # (auto) 0.4 10 ^3/uL (0-1.3); Monocytes % (auto) 5.5 % (0.0-12.0); Neutrophils # (auto) 4.9 10 ^3/uL (1.6-8.6); Neutrophils % (auto) 69.8 % (37.0-80.0); Nucleated Red Blood Cells % 0.4 %; Red Blood Cells 4.95 10^6/uL (4.5-5.90); Red Cell Distribution Width 14.3 % (11.8-14.3)
[2022-07-07 06:37] LABS: INR 0.92 (0.9-1.15)
[2022-07-07 06:38] LABS: Potassium 3.9 mmol/L (3.5-5.1)
[2022-07-07] MEDS ORDERED: HEPARIN DRIP/D5W 100UNITS/ML 250 ML IV SCH (06:45)
[2022-07-07 06:46] LABS: Calcium 8.4 mg/dL (8.5-10.1)
[2022-07-07] MEDS ORDERED: HEPARIN SODIUM (PORCINE) 5000 UNITS/ML 1ML VIAL IV ONE (07:00)
[2022-07-07 08:40] VITALS: BP 114/60
[2022-07-07] MEDS ORDERED: cefTRIAXone 1GM/50ML D5W 50 ML IV SCH (09:00)
[2022-07-07] MEDS: HYDROcodone-ACET 5/325MG TAB PO PRN (09:08)
[2022-07-07] MEDS ORDERED: BUMETANIDE 1 MG TAB PO SCH (10:00)
[2022-07-07 12:54] VITALS: BP 116/70
[2022-07-07] MEDS ORDERED: LEVO500T31 PO (13:11)
[2022-07-07] MEDS ORDERED: METF-370 PO (13:11)
[2022-07-07 13:51] VITALS: BP 114/60
== END 2022-07-07 15:00 | disposition home or self-care (01) | DRG 197 ==
LOC: TELE-WESTW 19:54
PROVIDERS: ADMIT Internal Medicine; ATTEND Internal Medicine
PROC: B51CYZZ Fluoroscopy of Left Lower Extremity Veins using Other Contrast (ICD-10-PCS; principal; 2022-07-06)
PROC: B54CZZA Ultrasonography of Left Lower Extremity Veins, Guidance (ICD-10-PCS; 2022-07-06)
DX: I82.432 Acute embolism and thrombosis of left popliteal vein (principal); C67.9 Malignant neoplasm of bladder, unspecified; E11.22 Type 2 diabetes mellitus with diabetic chronic kidney disease; I12.9 Hypertensive chronic kidney disease with stage 1 through stage 4 chronic kidney disease, or unspecified chronic kidney disease; E66.9 Obesity, unspecified; N39.0 Urinary tract infection, site not specified; F15.10 Other stimulant abuse, uncomplicated; N18.9 Chronic kidney disease, unspecified; Z85.51 Personal history of malignant neoplasm of bladder; Z93.2 Ileostomy status; Z86.718 Personal history of other venous thrombosis and embolism; Z88.0 Allergy status to penicillin; Z82.49 Family history of ischemic heart disease and other diseases of the circulatory system; Z83.3 Family history of diabetes mellitus; Z68.36 Body mass index [BMI] 36.0-36.9, adult
CPT/HCPCS: 36415; 71045; 76937; 76942; 80048; 80307; 81001; 82962; 83036; 85025; 85610; 85730; 87086; 93971; 99152; C1769; C1894; G0378; J0696; J1815; J2250; Q9967

== ENCOUNTER 2022-08-04 16:04 | Emergency (ER) | payer MEDICAID ==
[~2022-08-04] VITALS: Ht 182.9 cm; Wt 119.0 kg
[~2022-08-04 16:04] MED LIST changes: -AMOX500T86 PO; -APIX5TAB PO; +FURO40TA4 PO; +LEVO500T31 PO; +METF-370 PO; +RIV15T PO
[2022-08-04 18:13] LABS: Mean Corpuscular Hgb Conc. 34.6 g/dL (32.0-36.0)
[2022-08-04 18:17] LABS: Albumin 3.8 g/dL (3.4-5.0); Calcium 8.5 mg/dL (8.5-10.1); Potassium 4.8 mmol/L (3.5-5.1)
[2022-08-04 18:21] LABS: BUN/Creatinine Ratio 12.2 (10.0-20.0); Bilirubin, Total 0.5 mg/dL (0.2-1.0); Total Protein 7.3 g/dL (6.4-8.2)
[2022-08-04 18:25] LABS: Basophils # (auto) 0 10 ^3/uL (0-0.2); Basophils % (auto) 0.4 % (0.0-2.0); Eosinophils # (auto) 0.3 10 ^3/uL (0-0.8); Hematocrit 46.3 % (41.0-53.0); Lymphocytes # (auto) 0.9 10 ^3/uL (0.4-5.4); Lymphocytes % (auto) 11.5 % (10.0-50.0); Mean Corpuscular Hemoglobin 30.5 pg (28.0-32.0); Mean Corpuscular Volume 88.3 fL (80.0-100.0); Monocytes # (auto) 0.4 10 ^3/uL (0-1.3); Neutrophils % (auto) 79.1 % (37.0-80.0); Nucleated Red Blood Cells % 0.3 %; Red Blood Cells 5.25 10^6/uL (4.5-5.90); Red Cell Distribution Width 14.6 % (11.8-14.3); White Blood Cell 7.5 10^3/uL (4.4-10.8)
[2022-08-04 19:15] LABS: INR 1.09 (0.9-1.15)
[2022-08-04] MEDS ORDERED: MORPHINE SULFATE 4 MG/ML SYR/VIAL IM ONE (19:30)
[2022-08-04 21:00] VITALS: BP 156/85
== END 2022-08-04 21:06 | disposition home or self-care (01) ==
LOC: ER 16:04 → EDBD 16:04 → ER 21:06
DX: L03.116 Cellulitis of left lower limb (principal); I82.492 Acute embolism and thrombosis of other specified deep vein of left lower extremity; K21.9 Gastro-esophageal reflux disease without esophagitis; F17.210 Nicotine dependence, cigarettes, uncomplicated; Z88.0 Allergy status to penicillin
CPT/HCPCS: 36415; 80053; 83880; 84484; 85025; 85610; 93971; 96372; 99285; J2270